=== PATIENT | female | born 1985 | race Caucasian/White ===

== ENCOUNTER → 2018-02-08 17:00 | Outpatient (CLI) | payer SELFPAY ==
--- NOTE | 2018-02-08 17:04 | US_ITS ---
STUDY: SECOND AND THIRD TRIMESTER OBSTETRICAL ULTRASOUND - LIMITED REASON FOR EXAM: Female, 33 years old. growth. LMP: 06/02/2017 PRIOR ULTRASOUND: None. TECHNIQUE: Transabdominal ultrasound evaluation was performed. FINDINGS: There is a single intrauterine fetus. The fetus is in a cephalic presentation. There is demonstrated cardiac activity with a heart rate of 188 bpm. There is a normal amniotic fluid volume. The largest amniotic fluid pocket measures 9.2 cm. The amniotic fluid index (JORGE) is 15.6 cm. The placenta is posterior in location and is not low lying. Placental edge is 2.2 cm from the internal os. There are Grade 1 placental changes. The cervix measures 4.1 cm cm in length. BIOMETRY: BPD: 8.0: 32 weeks, 2 days HC: 32.9: 37 weeks, 4 days AC: 33.4: 37 weeks, 2 days FL: 6.9: 35 weeks, 5 days Age by LMP: 35 weeks, 6 days. SHANNON by LMP: 03/09/2018. age by prior US: weeks, days. SHANNON by prior US: . age by current US: 35 weeks, 5 days. SHANNON by current US: 03/10/2018. Estimated weight: 2897 grams, +/- 423 grams, 63 percentile. Gender: US/OB Limited With Biometrics IMPRESSION: Single live fetus in a vertex presentation. survey not performed on this exam. Placenta is grade 1 and is not low-lying. Cervix is closed. age by current US: 35 weeks, 5 days. SHANNON by current US: 03/10/2018. Estimated weight: 2897 grams, +/- 423 grams, 63 percentile. Electronically Signed: Qasim Weems MD at 20:09 EDT , Service support ,
== END ==
PROVIDERS: Visit Provider Obstetrics & Gynecology
DX: O44.41 Low lying placenta NOS or without hemorrhage, first trimester (principal); Z3A.00 Weeks of gestation of pregnancy not specified
CPT/HCPCS: 76816

== ENCOUNTER 2018-03-05 08:15 | Inpatient (IN) | payer SELFPAY ==
[2018-03-05] MEDS: Lactated Ringers 1,000 ML 50 ML IV (08:30)
[2018-03-05] MEDS: Oxytocin 30 units/NS 500 ml 30 UNITS/500 ML IV.SOLN IV (08:43)
[2018-03-05 08:46] VITALS: BMI 36.3
[2018-03-05 08:57] LABS: Hematocrit 35.9 % (37-47); Hemoglobin 12.2 g/dl (12.0-15.0); Mean Corpuscular Hgb 31.1 pg (27.0-32.0); Mean Corpuscular Volume 91.6 fL (81-99); Platelet Count 217 K/mm3 (150-450); RBC Distribution Width CV 14.9 % (11.6-14.6); Red Blood Count 3.92 M/mm3 (4.2-5.4)
[2018-03-05 09:00] LABS: Scan Indicated on CBC? Y/N NO
--- NOTE | 2018-03-05 09:28 | PCM.HP.OB ---
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 complicated by borderline low lying placenta. Allergies No Known Allergies Allergy (Verified 03/05/18 08:48) Home Medications: Home Medications NK [NK] 02/23/18 Smoking Status: Never smoker Alcohol: None Number of Fetus(es): 1 Heart Tracin moderate variability reactive no decels category I tracing TOCO Analysis: q3-5 History Past Pregnancies: Past PregnanciesPregancy History 8 Elective abortions Hx Para 5 Spontaneous abortions Hx # Term Pregnancies Ectopic pregnancies Hx # Pregnancies Multiple births # of living children Past Pregnancies Del. Date Name GA/Weeks Outcome Route Bth Weight Gen Labor Lgth Anesthesia Del [facility] Provider FOB Unknown 2008 Burke live - full term Unknown 2009 Leonila live - full term Unknown 2010 Jemma live - full term Unknown 2012 Meseret live - full term Unknown 2015 Pamela live - full term Labs: patient declined to have drawn Expected Delivery Method: Spontaneous Vaginal Number of Visits: seen by lay midwfife, had one visit with physician Review of Systems Constitutional: Denies: Fever, Malaise Eyes: Denies: Blurred vision, Vision Change HEENT: Denies: Head Aches, Visual Changes Cardiovascular: Denies: Chest Pain, Palpitations Respiratory: Denies: Cough, Shortness of Breath, Wheezing Gastrointestinal: Denies: Abdominal Pain, Diarrhea, Nausea, Vomiting Genitourinary: Denies: Dysuria, Hematuria Musculoskeletal: Denies: Joint Pain, Muscle pain Skin: Denies: Lesions, Rash Neurological: Denies: Blurred vision, Focal weakness, Headaches Psychiatric: Denies: Anxiety, Depression Endocrine: Denies: Heat/ Cold Intolerance Hematologic/ Lymphatic: Denies: Easy Bruising, Easy Bleeding Assessment/Plan All Active Problems (Last Reviewed 02/23/18 @ 14:44 by Jelena Abernathy) Supervision of normal (Acute) This is a 33 year-old, G 8, P 5, at 39 weeks gestational age. iol social due to transportation issues, favorable cervix patient had borderline low lying placenta and preferred IOL in hospital over home . arom thin mec
--- NOTE | 2018-03-05 09:32 | HP.PCM_ITS ---
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 complicated by borderline low lying placenta. Allergies No Known Allergies Allergy (Verified 03/05/18 08:48) Home Medications: Home Medications NK [NK] 02/23/18 Smoking Status: Never smoker Alcohol: None Number of Fetus(es): 1 Heart Tracin moderate variability reactive no decels category I tracing TOCO Analysis: q3-5 History Past Pregnancies: Past PregnanciesPregancy History 2 8 Elective abortions Hx Para 5 Spontaneous abortions Hx # Term Pregnancies Ectopic pregnancies Hx # Pregnancies Multiple births # of living children Past Pregnancies Del. Date Name GA/Weeks Outcome Route Bth Weight Infant Gen Labor Lgth Anesthesia Del [facility] Provider FOB Unknown 2008 Burke live - full term Unknown 2009 Leonila live - full term Unknown 2010 Jemma live - full term Unknown 2012 Meseret live - full term Unknown 2015 Pamela live - full term Labs: patient declined to have drawn Expected Delivery Method: Spontaneous Vaginal Number of Visits: seen by lay midwfife, had one visit with physician Review of Systems Constitutional: Denies: Fever, Malaise Eyes: Denies: Blurred vision, Vision Change HEENT: Denies: Head Aches, Visual Changes Cardiovascular: Denies: Chest Pain, Palpitations Respiratory: Denies: Cough, Shortness of Breath, Wheezing Gastrointestinal: Denies: Abdominal Pain, Diarrhea, Nausea, Vomiting Genitourinary: Denies: Dysuria, Hematuria Musculoskeletal: Denies: Joint Pain, Muscle pain Skin: Denies: Lesions, Rash Neurological: Denies: Blurred vision, Focal weakness, Headaches Psychiatric: Denies: Anxiety, Depression Endocrine: Denies: Heat/ Cold Intolerance Hematologic/ Lymphatic: Denies: Easy Bruising, Easy Bleeding Assessment/Plan All Active Problems (Last Reviewed 02/23/18 @ 14:44 by Jelena Abernathy) Supervision of normal (Acute) This is a 33 year-old, G 8, P 5, at 39 weeks gestational age. iol social due to transportation issues, favorable cervix patient had borderline low lying placenta and preferred IOL in hospital over home . arom thin mec
[2018-03-05] MEDS: Oxytocin 30 units/NS 500 ml 30 UNITS/500 ML IV.SOLN 334 UNITS IV (12:54)
[2018-03-05] MEDS: Methylergonovine 0.2 MG/ML Ampul IM (13:03)
--- NOTE | 2018-03-05 13:16 | PCM.OB.VAG ---
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 Patient has had a , gated by borderline low lying placenta. She has received care by a fabric lay out worker and was originally planning a home after having 5 previous home without complication and patient and client solutions specialist proceed with a hospital due to the borderline low lying placenta. Method of Induction: Pitocin Amniotic Membrane Rupture Type: Artificial Amniotic Fluid Description: Lightly stained meconium Final SHANNON: 03/09/18 Gestational age: 39 Weeks and 3 Days Date of Procedure: 03/05/18 Pre-Operative Diagnosis: iol social Post-Operative Diagnosis: Same plus mild shoulder dystocia mild hemorrhage Surgery/ Procedure Performed: Spontaneous Vaginal Delivery Type of Anesthesia: None Description of Procedure: Patient proceeded to complete dilation and began pushing on her hands and knees. After pushing with several contractions the head was delivered in the JOSE presentation and a mild shoulder dystocia was encountered but was remedied with chest position changes no internal manipulation was required gentle but steady upward and downward traction was performed to try and deliver both the anterior or posterior shoulders first the posterior pubic side shoulder was delivered first followed by the rectal side shoulder and the rest the was delivered onto the bottom of the bed cord was clamped and cut immediately and infant suctioned and passed to utility aircrewman for evaluation. Placenta delivered spontaneously immediately following was noted to be intact with a three-vessel cord. Patient was flipped over onto her back and did have some increased bleeding with a mild hemorrhage remedied with bimanual massage and Methergine and Pitocin. EBL was 700 cc. No lacerations were noted. Presentation: JOSE Placental Delivery Description: Spontaneous Placenta Disposition: [facility] Cord Vessel Description: 3 Vessels Cord Entanglement: None Estimated Blood Loss: 700 Infant A gender: Male Episiotomy Description: None Laceration: None Medications given after delivery: IV Pitocin, IM Methergin Complications: None
--- NOTE | 2018-03-05 13:20 | OP.PCM_ITS ---
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 Patient has had a , gated by borderline low lying placenta. She has received care by a piano player and was originally planning a home after having 5 previous home without complication and patient and transformer maker proceed with a hospital due to the borderline low lying placenta. Method of Induction: Pitocin Amniotic Membrane Rupture Type: Artificial Amniotic Fluid Description: Lightly stained meconium Final SHANNON: 03/09/18 Gestational age: 39 Weeks and 3 Days Date of Procedure: 03/05/18 Pre-Operative Diagnosis: iol social Post-Operative Diagnosis: Same plus mild shoulder dystocia mild hemorrhage Surgery/ Procedure Performed: Spontaneous Vaginal Delivery Type of Anesthesia: None Description of Procedure: Patient proceeded to complete dilation and began pushing on her hands and knees. After pushing with several contractions the head was delivered in the JOSE presentation and a mild shoulder dystocia was encountered but was remedied with chest position changes no internal manipulation was required gentle but steady upward and downward traction was performed to try and deliver both the anterior or posterior shoulders first the posterior pubic side shoulder was delivered first followed by the rectal side shoulder and the rest the was delivered onto the bottom of the bed cord was clamped and cut immediately and infant suctioned and passed to rehab aid for evaluation. Placenta delivered spontaneously immediately following was noted to be intact with a three-vessel cord. Patient was flipped over onto her back and did have some increased bleeding with a mild hemorrhage remedied with bimanual massage and Methergine and Pitocin. EBL was 700 cc. No lacerations were noted. Presentation: JOSE Placental Delivery Description: Spontaneous Placenta Disposition: [facility] Cord Vessel Description: 3 Vessels Cord Entanglement: None Estimated Blood Loss: 700 Infant A gender: Male Episiotomy Description: None Laceration: None Medications given after delivery: IV Pitocin, IM Methergin Complications: None
--- NOTE | 2018-03-05 13:20 | DCINST_ITS ---
Discharge Diet: No Restrictions Discharge Activity: Return to Normal Activity, May not drive while taking narcotic pain medications., May Shower May resume sexual activity in: 4-6 weeks Call your doctor if your incision/area has: Continuous Slow Oozing, Sudden Increased Bleeding, Increased Pain/ Swelling, Increased Redness, Foul Smelling Discharge Additional Instructions: If you experience any of the following, contact your healthcare provider. * Bleeding that soaks a pad every hour for 2 hours * Fever 100.4 or higher * Unrelieved incision or abdominal pain * Swelling, redness, discharge or bleeding from your incision or episiotomy site * Your incision begins to separate * Problems urinating (including inability to urinate or burning while urinating) . * Visual changes * Severe headache * Flu-like symptoms * Pain or redness in one of both of your breasts * Pain, warmth, tenderness or swelling in your legs, especially the calf area * Frequent nausea and vomiting * Symptoms of depression or anxiety If you experience any of the following, call 911 or go to the nearest Emergency Room. * Chest pain * Problems breathing * Seizure activity * Partial or complete paralysis of a body part, slurred speech, weakness or drooping of the face, or a sudden inability to walk or hold your balance Allergies/Adverse Reactions: Allergies No Known Allergies Allergy (Verified 03/05/18 08:48) Medications to take at Discharge NK [NK] 02/23/18 Please Follow Up With: Malena Linder MD - [phone] When: Call to make an appointment with your doctor in 6 weeks. If you had elevated Blood pressure or 4th degree laceration you will need to be seen in 2 weeks. Primary Care Physician: Care Physician,No Primary [Primary Care Provider] -
--- NOTE | 2018-03-05 13:20 | PCM.DCVAG ---
Discharge Diet: No Restrictions Discharge Activity: Return to Normal Activity, May not drive while taking narcotic pain medications., May Shower May resume sexual activity in: 4-6 weeks Call your doctor if your incision/area has: Continuous Slow Oozing, Sudden Increased Bleeding, Increased Pain/ Swelling, Increased Redness, Foul Smelling Discharge Additional Instructions: If you experience any of the following, contact your healthcare provider. Bleeding that soaks a pad every hour for 2 hours Fever 100.4 or higher Unrelieved incision or abdominal pain Swelling, redness, discharge or bleeding from your incision or episiotomy site Your incision begins to separate Problems urinating (including inability to urinate or burning while urinating). Visual changes Severe headache Flu-like symptoms Pain or redness in one of both of your breasts Pain, warmth, tenderness or swelling in your legs, especially the calf area Frequent nausea and vomiting Symptoms of depression or anxiety If you experience any of the following, call 911 or go to the nearest Emergency Room. Chest pain Problems breathing Seizure activity Partial or complete paralysis of a body part, slurred speech, weakness or drooping of the face, or a sudden inability to walk or hold your balance Allergies/Adverse Reactions: Allergies No Known Allergies Allergy (Verified 03/05/18 08:48) Medications to take at Discharge NK [NK] 02/23/18 Please Follow Up With: Malena Linder MD - [phone] When: Call to make an appointment with your doctor in 6 weeks. If you had elevated Blood pressure or 4th degree laceration you will need to be seen in 2 weeks. Primary Care Physician: Care Physician,No Primary [Primary Care Provider] -
[2018-03-05] MEDS: Oxytocin 30 units/NS 500 ml 30 UNITS/500 ML IV.SOLN 167 UNITS IV (13:24)
[2018-03-05] MEDS: 0.9% Saline Lock 10 ML Syringe IV (14:06)
--- NOTE | 2018-03-05 16:43 | NURSING ---
1632-Dr Mathis at bedside to discuss with pt the pts choice to go home this evening AMA, pt and both agreeable to signing AMA papers
== END 2018-03-05 18:30 | disposition home or self-care (01) | DRG 774 ==
PROVIDERS: Admitting Provider Obstetrics & Gynecology; Visit Provider Obstetrics & Gynecology
DX: O44.53 Low lying placenta with hemorrhage, third trimester (principal); O77.0 Labor and delivery complicated by meconium in amniotic fluid; Z3A.39 39 weeks gestation of pregnancy; Z37.0 Single live birth
CPT/HCPCS: 59025; 59050; 85027; 86850; 86900; 99218; J7120; A4216; G0378

== ENCOUNTER → 2020-04-04 13:46 | Outpatient (CLI) | payer SELFPAY ==
--- NOTE | 2020-04-04 13:48 | US_ITS ---
STUDY: SECOND AND THIRD TRIMESTER OBSTETRICAL ULTRASOUND - LIMITED REASON FOR EXAM: Female, 35 years old. Dates and growth. LMP: August 17, 2019. PRIOR ULTRASOUND: None. TECHNIQUE: Transabdominal and Transvaginal TECHNICAL QUALITY: Adequate. FINDINGS: There is a single intrauterine fetus. The fetus is in a cephalic presentation. There is demonstrated cardiac activity with a heart rate of 147 bpm. There is a normal amniotic fluid volume. The largest amniotic fluid pocket measures 6.0 cm. The amniotic fluid index (JORGE) is 13.61 cm. The placenta is anterior in location and is not low lying. There are Grade 2 placental changes. The cervix measures 3.76 cm cm in length. BIOMETRY: BPD: 8.37 cm: 33 weeks, 5 days HC: 31.17 cm: 35 weeks, 0 days AC: 35.03 cm: 39 weeks, 0 days FL: 6.78 cm: 34 weeks, 6 days Age by LMP: 33 weeks, 0 days. SHANNON by LMP: May 23, 2020. age by current US: 35 weeks, 5 days. SHANNON by current US: May 04, 2020. Estimated weight: 3063 grams, +/- 447 grams, 98 percentile. Gender: Indeterminant US/OB Limited With Biometrics IMPRESSION: 1. Live single intrauterine at 35 weeks, 5 days. SHANNON is May 04, 2020. 2. EFW 3063 g. 3. JORGE of 13.61 cm. 4. Anterior grade 2 placenta. 5. Vertex presentation. Electronically Signed: Gato Bower DO at 16:05 EDT Tel [phone], Service support ,
[2020-04-04 17:48] LABS: Absolute Lymphocyte Count 1.91 X10^3/uL (0.83-4.51); Absolute Neutrophil Count 7.4 X10^3/uL (2.0-7.7); Basophil# 0.02 X10^3/uL; Basophil% 0.2 % (0-1); Eosinophil# 0.09 X10^3/uL; Eosinophils% 0.9 % (0-5); Hemoglobin 11.5 g/dL (12.0-15.0); Lymphocyte # 1.91 X10^3/ul (4.0); Mean Corp Hgb Conc 32.9 g/dL (32-36); Mean Corpuscular Hgb 31.1 pg (27.0-32.0); Mean Corpuscular Volume 94.6 fL (81-99); Mean Platelet Vol. 9.3 fl (6.2-12.0); Monocyte# 0.61 X10^3/uL; Monocyte% 6.1 % (0-10); NRBC Flagged by Analyzer 0 % (0-5); Neutrophil # 7.36 X10^3/uL (2.7-7.7); Platelet Count 204 K/mm3 (150-450); RBC Distribution Width CV 15.8 % (11.6-14.6); RBC Distribution Width SD 54.9 fl (35.1-43.9); White Blood Count 10.1 K/mm3 (4.4-11.0)
== END ==
PROVIDERS: Referring Provider Obstetrics & Gynecology; Visit Provider Obstetrics & Gynecology
DX: O09.299 Supervision of pregnancy with other poor reproductive or obstetric history, unspecified trimester (principal); O26.849 Uterine size-date discrepancy, unspecified trimester; Z3A.00 Weeks of gestation of pregnancy not specified
CPT/HCPCS: 36415; 76816; 76817; 85025

== ENCOUNTER → 2020-04-22 17:24 | Outpatient (CLI) | payer SELFPAY ==
[2020-04-22 16:16] VITALS: BMI 36.3
== END ==
PROVIDERS: Visit Provider Obstetrics & Gynecology
DX: Z34.90 Encounter for supervision of normal pregnancy, unspecified, unspecified trimester (principal)
CPT/HCPCS: 87081

== ENCOUNTER → 2020-05-01 17:59 | Outpatient (CLI) | payer SELFPAY ==
[2020-04-22 16:16] VITALS: BMI 36.3
== END ==
PROVIDERS: Referring Provider Obstetrics & Gynecology; Visit Provider Obstetrics & Gynecology
DX: Z11.59 Encounter for screening for other viral diseases (principal)
CPT/HCPCS: 87635; 94799; U0003

== ENCOUNTER 2020-05-05 07:05 | Inpatient (IN) | payer SELFPAY ==
[2020-04-22 16:16] VITALS: BMI 36.3
[2020-05-05] VITALS (23 sets, daily range): BP systolic 100–135; BP diastolic 59–84; PULSE 87–112; TEMP 37.1–37.5; O2SAT 83–98; BMI 29.9
--- NOTE | 2020-05-05 07:33 | PCM.HP.OB ---
- Problem List (1) History of hemorrhage, currently Status: Acute Comment: nl CBC. discussed risks and encourage hospital (2) History of shoulder dystocia in prior Status: Acute Comment: 03/2018, recommend delivery at 39-40 weeks, discussed risks of recurrence and permanent neurologic injury if recurrent and severe. 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 she has been receiving care by bull fiddle player joon ledezma and it was recommended by her to bev in a hospital. previous SHANNON was three weeks after her SHANNON on third trimester us, so Shannon CHANGED to 05/04/20. After consultaiton patient declined 39 week IOL and agreed to IOL at 40 weeks with EFW or 4000g, which is less than her previous child that had a shoulder dystocia. 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 Date Name GA/Weeks Outcome Route Bth Weight Gen Labor Lgth Anesthesia Del Locatn Provider FOB Unknown 2008 Burke live - full term Unknown 2009 Leonila live - full term Unknown 2010 Jemma live - full term Unknown 2012 Meseret live - full term Unknown 2014 Pamela live - full term 03/05/18 Sandra 39 live - full term 9lbs Male [facility] Delivery Date: No notes to display Delivery Date: No notes to display Delivery Date: No notes to display Delivery Date: On 02/23/18 @ 14:59 Malena Linder mild should dystocia Delivery Date: No notes to display Delivery Date: 03/05/18 On 03/17/18 @ 11:05 Merlene Rosales Mild shoulder dystocia post hemorrhage Labs: Social History Alleged father Jasson Sarkar Smoking No Smoking Status Never smoker Expected Infant Delivery Method: Spontaneous Vaginal Review of Systems Constitutional: Denies: Fever, Malaise Eyes: Denies: Blurred vision, Vision Change HEENT: Denies: Head Aches, Visual Changes Cardiovascular: Denies: Chest Pain, Palpitations Respiratory: Denies: Cough, Shortness of Breath, Wheezing Gastrointestinal: Denies: Abdominal Pain, Diarrhea, Nausea, Vomiting Genitourinary: Denies: Dysuria, Hematuria Musculoskeletal: Denies: Joint Pain, Muscle pain Skin: Denies: Lesions, Rash Neurological: Denies: Blurred vision, Focal weakness, Headaches Psychiatric: Denies: Anxiety, Depression Endocrine: Denies: Heat/ Cold Intolerance Hematologic/ Lymphatic: Denies: Easy Bruising, Easy Bleeding Physical Exam General: Alert, Cooperative, No apparent distress HEENT: Atraumatic, Normocephalic. Negative for: Thyromegaly, Lymphadenopathy Cardiovascular: Regular rate Lungs: Normal air movement Abdomen: Soft, Non Tender, Gravid Neurological: Deep Tendon Reflexes 2+/4 and Symmetrical, Neuro grossly intact. Negative for: Clonus MASTER LAY OUT SPECIALIST: Normal external genitalia. Negative for: Vulvar lesions Estimated gestational size: Large for gestational age - EFW 4000g, less than preivous EFW that had shoulder dystoccia Presentation: Cephalic Cervix Dilation (cm): 1 Assessment/Plan All Active Problems (Last Reviewed 04/22/20 @ 16:16 by Jelena Abernathy) History of shoulder dystocia in prior (Acute) History of hemorrhage, currently (Acute) Uterine size date discrepancy (Acute) Supervision of normal (Acute) This is a 35 year-old, at 40w1d presents for IOL secondary to previous shoulder dystocia Patient presents IOL, plan management for with fb and pit. Pain management: minimal intervention GBS neg. Management of any complications: discussed risk of recurrent SD and PPH, patient wishes to proceed with vaginal delivery. preiovusly declined NOB labs, will draw today upon admission. I have reviewed the [facility] and made any clinically relevant updates.
[2020-05-05] MEDS: Lactated Ringers 1,000 ML 50 ML IV (07:50)
[2020-05-05] MEDS: Oxytocin 30 units/NS 500 ml 30 UNITS/500 ML IV.SOLN IV (08:10)
[2020-05-05 08:18] LABS: Absolute Lymphocyte Count 1.27 X10^3/uL (0.83-4.51); Absolute Neutrophil Count 6.3 X10^3/uL (2.0-7.7); Basophil# 0.01 X10^3/uL; Basophil% 0.1 % (0-1); Eosinophil# 0.06 X10^3/uL; Eosinophils% 0.7 % (0-5); Hematocrit 33.8 % (37-47); Hemoglobin 11.3 g/dL (12.0-15.0); Lymphocyte # 1.27 X10^3/ul (4.0); Lymphocyte % 15.5 % (19-41); Mean Corp Hgb Conc 33.4 g/dL (32-36); Mean Corpuscular Hgb 31.5 pg (27.0-32.0); Mean Corpuscular Volume 94.2 fL (81-99); Mean Platelet Vol. 9.5 fl (6.2-12.0); Monocyte# 0.45 X10^3/uL; Monocyte% 5.5 % (0-10); NRBC Flagged by Analyzer 0 % (0-5); Neutrophil # 6.33 X10^3/uL (2.7-7.7); Neutrophil % 77.6 % (47-70); Platelet Count 174 K/mm3 (150-450); RBC Distribution Width CV 15.7 % (11.6-14.6); RBC Distribution Width SD 53.4 fl (35.1-43.9); Red Blood Count 3.59 M/mm3 (4.2-5.4); White Blood Count 8.2 K/mm3 (4.4-11.0)
[2020-05-05] MEDS: 0.9% Normal Saline Single 100 ML IV.SOLN. IY (08:45)
[2020-05-05 08:55] LABS: Rubella IgG 332.9 IU/mL
[2020-05-05 09:27] LABS: HIV - WCH Non-Reactive (Nonreactive); Hepatitis B Surface Antigen Non-Reactive (Nonreactive); Hepatitis C Antibody Non-Reactive (Nonreactive)
--- NOTE | 2020-05-05 10:36 | NURSING ---
0949 (Late Entry) pt notified of need to obtain urine specimen. pt instructed to call RN after she voids
--- NOTE | 2020-05-05 10:37 | NURSING ---
1010 (Late Entry) pt states she urinated but missed the hat. unable to obtain urine specimen at this time
[2020-05-05 11:41] LABS: Bacteria 0 SEEN /hpf (None Seen); Mucous, Urine 0 SEEN /hpf (<or=2+); Red Blood Cells-Urine 0 SEEN /hpf (0-5); Squamous Epithelial Cells - UA 0 SEEN /hpf (5-10)
[2020-05-05 11:45] LABS: Color, Urine Yellow (Yellow); Glucose, Dipstick Normal (Normal); Ketone-Dipstick Negative (Negative); Leukocyte Esterase-Dipstick 25 /ul (Negative); Nitrite-Dipstick Negative (Negative); Occult Blood-Urine Negative /ul (Negative); Protein-Dipstick Negative (Negative); Urine Bilirubin Dipstick Negative (Negative); Urine Clarity Clear (Clear); Urine Urobilinogen Normal (Normal)
[2020-05-05 11:52] LABS: White Blood Cells 0-5 SEEN /hpf (0-5)
[2020-05-05 13:44] LABS: Chlamydia Trachomatis by PCR Negative (Negative); Neisserai gonorrhoeae by PCR Negative (Negative); Probe Check PASS; Sample Adequacy Control PASS; Specimen Processing Control PASS
[2020-05-05] MEDS: Oxytocin 30 units/NS 500 ml 30 UNITS/500 ML IV.SOLN 334 UNITS IV (15:14)
--- NOTE | 2020-05-05 15:56 | OP.PCM_ITS ---
Problem List (1) History of hemorrhage, currently Status: Acute Comment: nl CBC. discussed risks and encourage hospital (2) History of shoulder dystocia in prior Status: Acute Comment: 03/2018, recommend delivery at 39-40 weeks, discussed risks of recurrence and permanent neurologic injury if recurrent and severe. 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 [place] (4) Uterine size date discrepancy Status: Acute Comment: measuring 39 weeks at 32 weeks gestation Vaginal Delivery Maternal Presentation: Medically Indicated Induction iol history of shoulder dystocia Method of Induction: Pitocin, Ackerman Bulb Amniotic Membrane Rupture Type: Artificial Amniotic Fluid Description: Clear Date of Procedure: 05/05/20 Pre-Operative Diagnosis: iol shoulder dystocia Post-Operative Diagnosis: same Surgery/ Procedure Performed: Spontaneous Vaginal Delivery Type of Anesthesia: None Description of Procedure: Patient began pushing and delivered the head in the JOSE presentation. The head was delivered atraumatically and a loose nuchal cord ?1 was identified and easily reduced over the 's head. The anterior and posterior shoulders delivered without complication followed by the rest of the infant and the was placed on the maternal abdomen. Delayed cord clamping was employed for approximately 60 seconds. Cord was clamped and cut and gentle traction was applied to the cord and the placenta delivered spontaneously immediately fo llowing it was noted to be intact with three-vessel cord. The perineum and vagina were inspected and noted to have no laceration. EBL was 100 cc. Patient and infant tolerated delivery well. Presentation: JOSE Cord Entanglement: Around neck x 1, loose Estimated Blood Loss: 100 A gender: Male Episiotomy Description: None Laceration: None Medications given after delivery: IV Pitocin Complications: None Multi Select Codes - Urinary/Genital Urinary/Genital CPT Codes: 21939 Vaginal Delivery Only
--- NOTE | 2020-05-05 18:22 | DCINST_ITS ---
Discharge Diet: No Restrictions Discharge Activity: Return to Normal Activity, May not drive while taking narcotic pain medications., May Shower May resume sexual activity in: 4-6 weeks Call your doctor if your incision/area has: Continuous Slow Oozing, Sudden Increased Bleeding, Increased Pain/ Swelling, Increased Redness, Foul Smelling Discharge Additional Instructions: If you experience any of the following, contact your healthcare provider. * Bleeding that soaks a pad every hour for 2 hours * Fever 100.4 or higher * Unrelieved incision or abdominal pain * Swelling, redness, discharge or bleeding from your incision or episiotomy site * Your incision begins to separate * Problems urinating (including inability to urinate or burning while urinating). * Visual changes * Severe headache * Flu-like symptoms * Pain or redness in one of both of your breasts * Pain, warmth, tenderness or swelling in your legs, especially the calf area * Frequent nausea and vomiting * Symptoms of depression or anxiety If you experience any of the following, call 911 or go to the nearest Emergency Room. * Chest pain * Problems breathing * Seizure activity * Partial or complete paralysis of a body part, slurred speech, weakness or drooping of the face, or a sudden inability to walk or hold your balance Allergies/Adverse Reactions: Allergies No Known Allergies Allergy (Verified 05/05/20 07:40) Medications to take at Discharge vitamin#30 30 mg iron-10 mg iron-folic acid 1 mg-omg3 capsule 1 cap PO DAILY 04/04/20 Please Follow Up With: Malena Linder MD - [phone] When: Call to make an appointment with your doctor in 6 weeks. If you had elevated Blood pressure or 4th degree laceration you will need to be seen in 2 weeks. Primary Care Physician: Care Physician,No Primary [Primary Care Provider] - Test Results: Test results from this visit will be discussed in further detail at your follow- up appointment, if applicable.
--- NOTE | 2020-05-05 18:22 | PCM.DCVAG ---
Discharge Diet: No Restrictions Discharge Activity: Return to Normal Activity, May not drive while taking narcotic pain medications., May Shower May resume sexual activity in: 4-6 weeks Call your doctor if your incision/area has: Continuous Slow Oozing, Sudden Increased Bleeding, Increased Pain/ Swelling, Increased Redness, Foul Smelling Discharge Additional Instructions: If you experience any of the following, contact your healthcare provider. Bleeding that soaks a pad every hour for 2 hours Fever 100.4 or higher Unrelieved incision or abdominal pain Swelling, redness, discharge or bleeding from your incision or episiotomy site Your incision begins to separate Problems urinating (including inability to urinate or burning while urinating). Visual changes Severe headache Flu-like symptoms Pain or redness in one of both of your breasts Pain, warmth, tenderness or swelling in your legs, especially the calf area Frequent nausea and vomiting Symptoms of depression or anxiety If you experience any of the following, call 911 or go to the nearest Emergency Room. Chest pain Problems breathing Seizure activity Partial or complete paralysis of a body part, slurred speech, weakness or drooping of the face, or a sudden inability to walk or hold your balance Allergies/Adverse Reactions: Allergies No Known Allergies Allergy (Verified 05/05/20 07:40) Medications to take at Discharge vitamin#30 30 mg iron-10 mg iron-folic acid 1 mg-omg3 capsule 1 cap PO DAILY 04/04/20 Please Follow Up With: Malena Linder MD - [phone] When: Call to make an appointment with your doctor in 6 weeks. If you had elevated Blood pressure or 4th degree laceration you will need to be seen in 2 weeks. Primary Care Physician: Care Physician,No Primary [Primary Care Provider] - Test Results: Test results from this visit will be discussed in further detail at your follow-up appointment, if applicable.
[2020-05-09 02:04] LABS: Rapid Plasmin Reagin (RPR) NONREACTIVE (NONREACTIVE)
== END 2020-05-05 19:25 | disposition home or self-care (01) | DRG 807 ==
PROVIDERS: Admitting Provider Obstetrics & Gynecology; Visit Provider Obstetrics & Gynecology
DX: O69.81X0 Labor and delivery complicated by cord around neck, without compression, not applicable or unspecified (principal); Z37.0 Single live birth; Z3A.40 40 weeks gestation of pregnancy; O75.89 Other specified complications of labor and delivery
CPT/HCPCS: 59025; 59050; 81001; 85025; 86592; 86703; 86762; 86803; 86850; 86900; 86901; 87340; 87491; 87591; 99218; J7120; G0378